=== PATIENT | male | born 1980 | race African-American/Black ===

== ENCOUNTER 2017-09-25 11:13 | Emergency (ER) | payer BC ==
[~2017-09-25] VITALS: Ht 182.9 cm; Wt 114.4 kg
[2017-09-25 11:16] VITALS: TEMP 36.7
[2017-09-25 11:41] VITALS: O2SAT 99; Ht 182.9 cm; Wt 114.4 kg
--- NOTE | 2017-09-25 11:44 | DIAGNOSTIC IMAGING REPORT ---
CHEST ONE VIEW PORTABLE CLINICAL HISTORY: Weakness. Numbness. COMPARISON STUDY: No previous studies for comparison. FINDINGS: Lung volumes are normal. Lungs are clear. No pneumothorax or pleural effusion is noted. Cardiac size is normal. Mediastinal contours are unremarkable. There is no evidence for pulmonary edema. IMPRESSION: No acute cardiopulmonary findings. Electronically signed by: Raad Cruz M.D. 09/25/2017 11:43 AM Dictated Date/Time: 09/25/2017 11:42 AM
[2017-09-25 11:53] LABS: EOS % 1.7 %; EOS ABS # 0.08 K/uL (0-0.5); HEMATOCRIT 42.3 % (42-52); HEMOGLOBIN 14.1 g/dL (14.0-18.0); IG# 0.01 K/uL (0.00-0.02); LYMPH % 45.7 %; LYMPH ABS # 2.15 K/uL (1.2-3.4); MEAN CELL VOLUME 78.9 fL (80-100); MEAN CORPUSCULAR HEMOGLOBIN 26.3 pg (25-34); MEAN CORPUSCULAR HGB CONC 33.3 g/dl (32-36); MEAN PLATELET VOLUME 9.2 fL (7.4-10.4); MONO % 8.9 %; MONO ABS # 0.42 K/uL (0.11-0.59); NEUT % 43.5 %; NEUT ABS # 2.04 K/uL (1.4-6.5); PLATELET COUNT 246 K/uL (130-400); RED CELL DISTRIBUTION WIDTH CV 13.2 % (11.5-14.5); RED CELL DISTRIBUTION WIDTH SD 37.7 fL (36.4-46.3)
[2017-09-25] MEDS ORDERED: MULT-506 PO (12:02)
[2017-09-25] MEDS ORDERED: LISI-787 PO (12:02)
[2017-09-25 12:03] LABS: PTT PATIENT 30.3 SECONDS (21.0-31.0)
[2017-09-25 12:15] LABS: ALBUMIN 3.8 gm/dl (3.4-5.0); ALT/SGPT 27 U/L (12-78); AST/SGOT 16 U/L (15-37); BLOOD UREA NITROGEN 16 mg/dl (7-18); CALCIUM 9.2 mg/dl (8.5-10.1); CARBON DIOXIDE 26 mmol/L (21-32); GLUCOSE 94 mg/dl (70-99); LIPASE 78 U/L (73-393); POTASSIUM 3.4 mmol/L (3.5-5.1); SODIUM 136 mmol/L (136-145)
[2017-09-25 12:23] LABS: ALKALINE PHOSPHATASE 76 U/L (45-117); CKMB 1.3 ng/ml (0.5-3.6); TOTAL PROTEIN 7.5 gm/dl (6.4-8.2)
--- NOTE | 2017-09-25 12:31 | DIAGNOSTIC IMAGING REPORT ---
CT OF THE HEAD WITHOUT CONTRAST CLINICAL HISTORY: EVALUATE WEAKNESS COMPARISON STUDY: No previous studies for comparison. CT DOSE: 614.27 mGy.cm TECHNIQUE: Helical axial images of the head were obtained without IV contrast. Automated exposure control was utilized for the study. A dose lowering technique was utilized adhering to the principles of ALARA. FINDINGS: No acute intracranial hemorrhage, midline shift or mass effect is present. Ventricular system is normal. Basilar cisterns are patent. There are no extra-axial collections. Santamaria-white differentiation is maintained. There are no findings to suggest acute dural sinus thrombosis or acute territorial infarct. There are no significant calvarial abnormalities. Visualized portions of the sinuses and mastoid air cells are clear. IMPRESSION: No acute intracranial findings. Electronically signed by: Raad Cruz M.D. 09/25/2017 12:30 PM Dictated Date/Time: 09/25/2017 12:28 PM
--- NOTE | 2017-09-25 14:02 | EMERGENCY ROOM VISIT NOTE ---
History Report prepared by Laxmi: Olu Walker Under the Supervision of: Dr. Riley Sue M.D. First contact with patient: 11:22 Chief Complaint: CARDIAC ASSESSMENT Stated Complaint: NUMBNESS FEET, SWEATING, CHEST PAIN, BACK PAIN History of Present Illness The patient is a 37 year old male who presents to the Emergency Room with complaints of improving chest pain beginning shortly prior to arrival. He rates his pain as a 6/10 in severity. The patient also complains of headaches, left sided facial numbness, and lower extremity tingling. His symptoms began with tingling to his lower extremities while at a class. 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 The patient has a history of GERD and believes his chest pain is likely reflux related. He states that he had wings, and cheese/potato soup yesterday which likely aggravated his stomach. He woke up with his chest pain this morning. The patient reports possible increased urinary frequency. He states that he has been having intermittent headaches for the past few weeks. His current headache began one hour ago, and he rates it as a 5/10 in severity. He states that he had some abdominal and back pain today as well, but he has been having these occasionally for the past few weeks. The patient notes that he was found to have protein in his urine as well as a high red blood cell count two weeks ago by his PCP. He was recently seen by his elephant keeper and wood box maker for a flashing spot in his left sided visual field. He was told he may have a fluid build up in his eye, but then was told he likely did not at a subsequent visit. The patient has run 2.5 miles twice this week without difficulty. Pt denies LOC, fevers, chills, diaphoresis, neck pain, breathing difficulties, nausea, vomiting, melena, hematochezia, weakness, lymphadenopathy , rash, or other complaints. Source of History: patient Onset: Shortly prior to arrival Position: chest Symptom Intensity: 6/10 Timing: other (improving) Associated Symptoms: + headache (5/10 in severity, 1 hour ago), + back pain , + numbness (left face) Note: Positive: lower extremity tingling. Review of Systems See HPI for pertinent positives and negatives. A total of ten systems were reviewed and were otherwise negative. Past Medical & Surgical Medical Problems: (1) Hypertension (2) Proteinuria Surgical Problems: (1) S/P hernia repair Family History No pertinent family history stated. Social History Smoking Status: Former Smoker Occupation Status: employed Current/Historical Medications Scheduled Lisinopril/Hctz (Zestoretic 20MG/12.5MG), 1 TAB PO QAM Multivitamin (Multivitamin), 1 TAB PO QAM Allergies Uncoded Allergies: SEASONAL ALLERGIES (Allergy, Intermediate, SNEZZING/WATERY EYES/RUNNY NOSE , 09/25/17) Physical Exam Vital Signs Date Time Temp Pulse Resp B/P (MAP) Pulse Ox O2 Delivery O2 Flow Rate FiO2 09/25/17 14:35 84 18 138/87 99 Room Air 09/25/17 13:29 79 18 133/87 98 Room Air 09/25/17 12:30 76 09/25/17 12:25 75 18 136/85 99 Room Air 09/25/17 11:46 73 18 141/89 98 Room Air 86 151/95 93 139/99 09/25/17 11:41 99 Room Air 09/25/17 11:41 Room Air 09/25/17 11:16 36.7 78 20 160/92 97 Room Air Physical Exam GENERAL: Awake, alert, well appearing, no distress HENT: Normocephalic, atraumatic. TM's normal. Oropharynx unremarkable. EYES: PERRL. EOMI. Normal conjunctiva. Sclera non-icteric. NECK: Supple. No nuchal rigidity. FROM. No bruit. RESPIRATORY: Breath sounds equal. No wheezes. No rhonchi. Normal respiratory effort. CARDIAC: Normal rate. Regular rhythm. No murmurs. No rubs. No JVD. GI: Soft, non distended. No tenderness to palpation. No rebound or guarding. No masses. RECTAL: Deferred. MUSCULOSKELETAL: Unremarkable. No edema. No discoloration. Gross motor strength symmetric. NEURO: Cranial nerves 2-12 grossly intact. Normal sensorium. No sensory or motor deficits noted. Speech normal. No pronator drift. Gait normal. Negative rhomberg. SKIN: No rash or jaundice noted. LYMPH: No adenopathy. Medical Decision & Procedures ER Provider Diagnostic Interpretation: Radiology results as stated below per my review and radiologist interpretation: CT OF THE HEAD WITHOUT CONTRAST FINDINGS: No acute intracranial hemorrhage, midline shift or mass effect is present. Ventricular system is normal. Basilar cisterns are patent. There are no extra-axial collections. Santamaria-white differentiation is maintained. There are no findings to suggest acute dural sinus thrombosis or acute territorial infarct. There are no significant calvarial abnormalities. Visualized portions of the sinuses and mastoid air cells are clear. IMPRESSION: No acute intracranial findings. Electronically signed by: Raad Cruz M.D. 09/25/2017 12:30 PM CHEST ONE VIEW PORTABLE FINDINGS: Lung volumes are normal. Lungs are clear. No pneumothorax or pleural effusion is noted. Cardiac size is normal. Mediastinal contours are unremarkable. There is no evidence for pulmonary edema. IMPRESSION: No acute cardiopulmonary findings. Electronically signed by: Raad Cruz M.D. 09/25/2017 11:43 AM Laboratory Results 09/25/17 11:45 Red Blood Count 5.36, Mean Corpuscular Volume 78.9, Mean Corpuscular Hemoglobin 26.3, Mean Corpuscular Hemoglobin Concent 33.3, Mean Platelet Volume 9.2, Neutrophils (%) (Auto) 43.5, Lymphocytes (%) (Auto) 45.7, Monocytes (%) (Auto) 8.9, Eosinophils (%) (Auto) 1.7, Basophils (%) (Auto) 0.0, Neutrophils # (Auto) 2.04, Lymphocytes # (Auto) 2.15, Monocytes # (Auto) 0.42, Eosinophils # (Auto) 0.08, Basophils # (Auto) 0.00 09/25/17 11:45 Test 09/25/17 11:45 09/25/17 13:20 White Blood Count 4.70 K/uL (4.8-10.8) Red Blood Count 5.36 M/uL (4.7-6.1) Hemoglobin 14.1 g/dL (14.0-18.0) Hematocrit 42.3 % (42-52) Mean Corpuscular Volume 78.9 fL (80-100) Mean Corpuscular Hemoglobin 26.3 pg (25-34) Mean Corpuscular Hemoglobin Concent 33.3 g/dl (32-36) Platelet Count 246 K/uL (130-400) Mean Platelet Volume 9.2 fL (7.4-10.4) Neutrophils (%) (Auto) 43.5 % Lymphocytes (%) (Auto) 45.7 % Monocytes (%) (Auto) 8.9 % Eosinophils (%) (Auto) 1.7 % Basophils (%) (Auto) 0.0 % Neutrophils # (Auto) 2.04 K/uL (1.4-6.5) Lymphocytes # (Auto) 2.15 K/uL (1.2-3.4) Monocytes # (Auto) 0.42 K/uL (0.11-0.59) Eosinophils # (Auto) 0.08 K/uL (0-0.5) Basophils # (Auto) 0.00 K/uL (0-0.2) RDW Standard Deviation 37.7 fL (36.4-46.3) RDW Coefficient of Variation 13.2 % (11.5-14.5) Immature Granulocyte % (Auto) 0.2 % Immature Granulocyte # (Auto) 0.01 K/uL (0.00-0.02) Prothrombin Time 10.7 SECONDS (9.0-12.0) Prothromb Time International Ratio 1.0 (0.9-1.1) Activated Partial Thromboplast Time 30.3 SECONDS (21.0-31.0) Partial Thromboplastin Ratio 1.2 Anion Gap 7.0 mmol/L (3-11) Est Creatinine Clear Calc Drug Dose 103.6 ml/min Estimated GFR () 81.9 Estimated GFR (Non- 70.7 BUN/Creatinine Ratio 12.0 (10-20) Calcium Level 9.2 mg/dl (8.5-10.1) Magnesium Level 2.3 mg/dl (1.8-2.4) Total Bilirubin 0.9 mg/dl (0.2-1) Direct Bilirubin 0.2 mg/dl (0-0.2) Aspartate Amino Transf (AST/SGOT) 16 U/L (15-37) Alanine Aminotransferase (ALT/SGPT) 27 U/L (12-78) Alkaline Phosphatase 76 U/L (45-117) Total Creatine Kinase 357 U/L (39-308) Creatine Kinase MB 1.3 ng/ml (0.5-3.6) Creatine Kinase MB Ratio 0.4 (0-3.0) Total Protein 7.5 gm/dl (6.4-8.2) Albumin 3.8 gm/dl (3.4-5.0) Lipase 78 U/L (73-393) Thyroid Stimulating Hormone (TSH) 1.270 uIu/ml (0.300-4.500) Troponin I < 0.015 ng/ml (0-0.045) Laboratory results reviewed by me ECG Per My Interpretation Indication: chest pain Rate (beats per minute): 78 Rhythm: normal sinus Findings: other (No ST elevations. No PVCs. No pericarditis. ) Comparison ECG Date: no prior available Change: Repeat ECG shows a normal sinus rhythm with a rate of [address] elevations. No PVCs. No change from prior ECG. ED Course 1124: The patient was evaluated in room C12B. A complete history and physical exam was performed. 1422: The patient's heart score was calculated at 1 making him very low risk. Repeat troponin was negative. 1432: I reevaluated the patient. Discussed results and discharge instructions: he verbalized understanding and agreement. The patient is ready for discharge. Medical Decision Nursing notes reviewed and agree them. The patient's history was concerning for chest discomfort, headache, numbness, visual changes, and abdominal pain. Differential diagnosis: Etiologies such as metabolic, infection, hypo/hyperglycemia, electrolyte abnormalities, cardiac sources, intracerebral event, toxicologic, neurologic, migraine, as well as others were entertained. Physical examination: As above. Nonfocal. Benign abdomen. ER treatment provided: IV Lock No medication given On reassessment the patient felt better. Diagnostics interpretation by me: ECG: Normal sinus rhythm without ischemia or abnormality 2. The labs revealed an unremarkable CBC and chemistry panel. Cardiac markers negative. Troponin negative 2. The patient's heart score is 1. He is extremely low risk for coronary event. Follow-up as an outpatient is appropriate. Imaging studies: CT scan and chest x-ray as above. The patient is doing well. He had multiple different symptoms across many different systems and his workup here was rather benign. He did have a slight elevation of his total CK but admits going to the gym and working out recently. He states he has run several miles twice already this week and had no chest pain or heart related issues. The exact etiology of his symptoms is not obvious at this moment however no emergent pathology was noted. Close outpatient follow-up with his PCP was recommended. The patient feels very comfortable with this. I gave my usual and customary discussion regarding this issue. By the evaluation outlined above other emergent etiologies such as those listed in the differential, as well as others, were deemed relatively unlikely. The patient was educated about the findings as listed above. All questions were answered and the patient was pleased with the treatment. Return instructions were outlined and the patient was discharged in stable condition. The patient was referred to his PCP for follow-up for a recheck of the current condition. Medication Reconcilliation Current Medication List: was personally reviewed by me Blood Pressure Screening Patient's blood pressure: Elevated blood pressure Blood pressure disposition: Elevated BP felt to be situational Impression Primary Impression: Numbness of both lower extremities Additional Impressions: Substernal chest pain Back pain Headache Scribe Attestation The scribe's documentation has been prepared under my direction and personally reviewed by me in its entirety. I confirm that the note above accurately reflects all work, treatment, procedures, and medical decision making performed by me. Departure Information Dispostion Home / Self-Care Forms IMPORTANT VISIT INFORMATION Patient Instructions My [facility] Additional Instructions Rest. Drink plenty of fluids. Ibuprofen(Motrin, Advil) may be used for fever or pain. Use 600mg every six hours as needed. Take with food. Avoid using more than 2400mg in a 24 hour period. Do not use 2400mg per day for more than three consecutive days without physician direction. Prolonged inappropriate use can lead to stomach upset or ulcers. (AND/OR) Acetaminophen(Tylenol) may be used for fever or pain. Use 1000mg every six hours as needed. Avoid using more than 4000mg in a 24 hour period. Continue current medications. Avoid strenuous activities and anything that worsens your symptoms. Resume normal activities once your symptoms resolve. Return to the ER immediately for worsening or persistent chest pain, severe headaches, abdominal pain, vomiting, fevers, chest pains, difficulty breathing, worsening of your condition, or as needed. Follow up with your primary physician in 2-3 days for a recheck of your current condition. Problem Qualifiers
[2017-09-25 14:35] VITALS: BP 138/87; PULSE 84; O2SAT 99
== END 2017-09-25 14:59 | disposition home or self-care (01) ==
LOC: C.EDB 11:15 → C.EDC 14:59
DX: R07.2 Precordial pain (principal); R20.0 Anesthesia of skin; M54.9 Dorsalgia, unspecified; R51 Headache; K21.9 Gastro-esophageal reflux disease without esophagitis; I10 Essential (primary) hypertension; Z87.891 Personal history of nicotine dependence; Z79.899 Other long term (current) drug therapy